=== PATIENT | female | born 1985 | race Caucasian/White ===

== ENCOUNTER 2020-01-24 15:13 | Emergency (ER) | payer MEDICAID ==
[~2020-01-24] VITALS: Ht 162.6 cm; Wt 59.9 kg
[2020-01-24 15:21] VITALS: BP 137/87
--- NOTE | 2020-01-24 15:26 | NUR ---
PT AMBULATED TO BED 9.
--- NOTE | 2020-01-24 15:33 | NUR ---
34 y/o female from home c/o possible allergic reaction/rash x 5 days. Pt states rash began on arms and spread to abd and back. States one day ago she had lip swelling that has reduced and noticable right eye swelling. No change in vision. Denies pruritis/pain. Redness noted to abd and back. Denies SOB/chest pain. Pt denies change in laundry detergent/soap/change in diet. Awake and alert. VSS
--- NOTE | 2020-01-24 15:51 | NUR ---
Dr Merrill at bedside examining pt
[2020-01-24 15:59] VITALS: BP 137/87
--- NOTE | 2020-01-24 16:01 | NUR ---
Patient discharged with v/s stable. Written and verbal after care instructions given and explained. Patient alert, oriented and verbalized understanding of instructions. Ambulatory with steady gait. All questions addressed prior to discharge. ID band removed. Patient advised to follow up with PMD. Rx of Prednisone 50mg given. Patient educated on indication of medication including possible reaction and side effects. Opportunity to ask questions provided and answered.
== END 2020-01-24 16:01 | disposition home or self-care (01) ==
LOC: MED 15:13
DX: T78.49XA Other allergy, initial encounter (principal); X58.XXXA Exposure to other specified factors, initial encounter
CPT/HCPCS: 99283

== ENCOUNTER 2023-11-16 01:45 | Emergency (ER) | payer MEDICAID ==
[~2023-11-16] VITALS: Ht 162.6 cm; Wt 54.0 kg
[2023-11-16 01:54] VITALS: BP 137/92; PULSE 78; RESP 14; TEMP 98.3; O2SAT 99
[2023-11-16 03:00] VITALS: O2SAT 99
[2023-11-16] MEDS ORDERED: ACET-10509 PO (03:08)
[2023-11-16] MEDS ORDERED: NAPR-1704 PO (03:08)
[2023-11-16] MEDS ORDERED: SULF-59 PO (03:08)
[2023-11-16] MEDS: SULFAMETH/TRIMETH DS 800/160MG 1 TAB PO ONE (03:19)
[2023-11-16] MEDS: ACETAMINOPHEN 325 MG TAB PO ONE (03:19)
== END 2023-11-16 03:20 | disposition home or self-care (01) ==
LOC: MED 01:45
DX: L02.415 Cutaneous abscess of right lower limb (principal); S70.361A Insect bite (nonvenomous), right thigh, initial encounter; W57.XXXA Bitten or stung by nonvenomous insect and other nonvenomous arthropods, initial encounter; Y93.89 Activity, other specified; Y92.89 Other specified places as the place of occurrence of the external cause; Y99.8 Other external cause status
CPT/HCPCS: 99283